=== PATIENT | male | born 1990 | race Caucasian/White ===

== ENCOUNTER 2017-10-06 12:42 | Emergency (ER) | payer SELFPAY ==
[~2017-10-06] VITALS: Ht 180.3 cm; Wt 112.9 kg
[~2017-10-06 12:42] MED LIST: CEPH250A PO
[2017-10-06] MEDS ORDERED: DIPH50 PO (13:01)
[2017-10-06] MEDS ORDERED: 24HOUR ALLERGY10 MG PO (13:01)
[2017-10-06] MEDS ORDERED: Vibramycin100 MG PO (15:02)
[2017-10-06] MEDS ORDERED: Flonase 0.05% N16 GM (15:02)
[2017-10-06] MEDS ORDERED: Sudogest30 MG PO (15:02)
[2017-10-06] MEDS ORDERED: Prednisone20 MG PO (15:02)
[2017-10-06] MEDS ORDERED: ALBU90OI INH (15:02)
[2017-10-06] MEDS ORDERED: BENZ100A PO (15:02)
== END 2017-10-06 15:10 | disposition home or self-care (01) ==
LOC: ER 12:42
DX: J32.9 Chronic sinusitis, unspecified (principal); Z88.0 Allergy status to penicillin; Z79.899 Other long term (current) drug therapy
CPT/HCPCS: 71046; 94640; 99284

== ENCOUNTER → 2023-07-10 | Outpatient (CLI) | payer SELFPAY ==
[~2023-07-10] MED LIST changes: +24HOUR ALLERGY10 MG PO; +ALBU90OI INH; +BENZ100A PO; +DIPH50 PO; +Flonase 0.05% N16 GM; +Prednisone20 MG PO; +Sudogest30 MG PO; +Vibramycin100 MG PO
== END | disposition home or self-care (01) ==
LOC: LAB SHORT 12:04
DX: M79.671 Pain in right foot (principal)
CPT/HCPCS: 84550